=== PATIENT | male | born 1970 | race Caucasian/White ===

== ENCOUNTER 2019-04-13 08:41 | Outpatient (CLI) | payer OTHER ==
--- NOTE | 2019-04-14 08:52 | MRI Report ---
Reason: LOWER ABDOMINAL PAIN,UNSPECIFIED Procedure Date: 04/13/2019 Accession Number: [id number] / [id number] Procedure: MRI - Pelvis W/O CPT Code: FULL RESULT: EXAM: MRI PELVIS WITHOUT CONTRAST EXAM DATE: 04/13/2019 09:04 AM. CLINICAL HISTORY: Lower abdominal pain. Injury during racquetball. Clinical concern for sports hernia. COMPARISON: None. TECHNIQUE: Multiplanar, multisequence T1-weighted and fluid-sensitive sequences of the pelvis without contrast. Other: None. FINDINGS: Bones: No fractures. Severe marrow edema is demonstrated in the bilateral medial pubic bones, which could be reactive or represent stress reaction. Lower Lumbar Spine: Unremarkable. Sacroiliac Joints: No effusion or sacroiliitis. Right Hip: No acetabular retroversion. Femoral head-neck offset is within normal limits. No effusion. Left Hip: No acetabular retroversion. Femoral head-neck offset is within normal limits. No effusion. Symphysis Pubis: At the inferior half of the anterior pubic symphysis and the entire posterior half of the pubic symphysis, the central disk is from the right pubic bone and the abductor aponeurosis is pulled off the bone. Separation is as much as 3 mm (series 401, image 10). Musculature: There is edema in the proximal right abductor muscle origin on the pubic symphysis as a result of the avulsion injury. No fatty atrophy. Pelvic Cavity: The visualized bowel, bladder, and reproductive organs are unremarkable. No lymphadenopathy. No free fluid in the pelvis. Other: The visualized sciatic nerves are unremarkable. No bursitis. The subcutaneous tissues are unremarkable. IMPRESSION: 1. Severe marrow edema in the bilateral pubic bones may represent stress reaction. 2. Separation of the central disk of the pubic symphysis and the aponeurosis of the right abductor muscle origin from the right pubic bone by 3 mm. RADIA
== END 2019-04-13 08:42 | disposition home or self-care (01) ==
LOC: DI 08:41
PROVIDERS: ATTEND Family Medicine
DX: M62.051 Separation of muscle (nontraumatic), right thigh (principal); M94.8X8 Other specified disorders of cartilage, other site
CPT/HCPCS: 72195

== ENCOUNTER 2020-05-04 09:17 | Outpatient (CLI) | payer OTHER ==
[~2020-05-04 09:17] MED LIST: BUFFERED LIDOCAINE 10 ML SYRINGE ONE; GADOBUTROL 7.5 MMOL/7.5 ML VIAL ONE
[2020-05-04] MEDS ORDERED: BUFFERED LIDOCAINE 10 ML SYRINGE IU ONE (12:17)
[2020-05-04] MEDS ORDERED: GADOBUTROL 7.5 MMOL/7.5 ML VIAL IVP ONE (12:17)
[2020-05-04] MEDS ORDERED: iohexoL-240 10 ML VIAL IVP ONE (12:18)
--- NOTE | 2020-05-04 13:20 | XRAY Report ---
Reason: RT SHOULDER PAIN Procedure Date: 05/04/2020 Accession Number: [id number] / [id number] Procedure: FL - Arthrogram Needle Placement CPT Code: Final Report FULL RESULT: PROCEDURE: Arthrogram Needle Placement INDICATIONS: Right shoulder pain CONTRAST: 0.5 mL of gadolinium this and 6 mm Omnipaque 240. FLUOROSCOPY TIME: 10 seconds; 3 images TECHNIQUE: The indications, alternatives, benefits, risks, and complications of the procedure were explained to the patient. Written informed consent was obtained and placed in the chart. The shoulder was examined fluoroscopically and a site for needle placement chosen for entry into the glenohumeral joint from an anterior approach. The skin was prepped and draped in the usual fashion, and 1% lidocaine infiltrated from skin down to joint capsule. A spinal needle was inserted into the glenohumeral joint, and a small amount of iodinated contrast media injected to confirm intra-articular placement of the needle tip. This was followed by approximately 12 mL dilute solution of a gadolinium containing MR contrast agent. The needle was removed and a dressing was applied. The patient was given postprocedural instructions and sent to the MR suite for MR imaging. FINDINGS: A single fluoroscopic spot image demonstrates intra-articular location of injected iodinated contrast. IMPRESSION: Successful fluoroscopically guided administration of dilute Gadolinium solution into the shoulder joint for MR arthrogram. Reviewed by: Guilherme Reed MD on 05/04/2020 1:19 PM PDT Approved by: Guilherme Reed MD on 05/04/2020 1:19 PM PDT Station ID: [id number]
--- NOTE | 2020-05-04 14:27 | MRI Report ---
PROCEDURE: Arthrogram Shoulder RT INDICATIONS: RT SHOULDER PAIN CONTRAST: 12 mL of diluted intra-articular gadolinium contrast. TECHNIQUE: After the administration of 12 mL of dilute intra-articular Gadolinium contrast, oblique coronal T1 a nd T2 spin echo with fat saturation, oblique sagittal T1 spin echo with and without fat saturation, o blique sagittal T2 fast spin echo with fat saturation, axial T1 spin echo with fat saturation through the shoulder. COMPARISON: None. FINDINGS: Image quality: Excellent. Rotator cuff: Tendinosis and low-grade articular and bursal surface partial-thickness tear involving distal supraspinatus at its insertion on humeral head is seen extending to musculotendinous junction. Distal infraspinatus and subscapularis tendons are intact. No full-thickness rotator cuff tendon rup ture. No rotator cuff muscle atrophy on sagittal images. Bones and bursae: No bone marrow contusions or fractures. No acromioclavicular joint degeneration. The acromion demonstrates conventional anatomy, without an os acromiale. Capsule and soft tissues: There is contrast extension and contour irregularity involving superior ant erior labrum extending from 11 to 1:00 position consistent with superior labral tear. The glenohumera l ligaments appear intact. The long head of the biceps tendon demonstrates normal location and morph ology. The rotator interval appears normal, without fibrosis. The coracohumeral ligament is of norm al thickness. No intra-articular bodies. IMPRESSION: 1. Extensive superior labral tear extending from 11 to 1:00 position. 2. Tendinosis and low-grade articular and bursal surface partial-thickness tear involving distal supr aspinatus. No full-thickness rotator cuff tendon rupture. 3. No marrow edema. No fracture or dislocation. Reviewed by: Stuart Landeros MD on 05/04/2020 2:25 PM PDT Approved by: Stuart Landeros MD on 05/04/2020 2:25 PM PDT Station ID: [id number]
== END 2020-05-04 09:18 | disposition home or self-care (01) ==
LOC: DI 09:17
PROVIDERS: ATTEND Family Medicine
DX: S43.431A Superior glenoid labrum lesion of right shoulder, initial encounter (principal); M75.101 Unspecified rotator cuff tear or rupture of right shoulder, not specified as traumatic; M75.81 Other shoulder lesions, right shoulder
CPT/HCPCS: 23350; 73222; 77002; A9585

== ENCOUNTER 2020-06-20 12:26 | Outpatient (CLI) | payer OTHER ==
[~2020-06-20 12:26] MED LIST changes: -BUFFERED LIDOCAINE 10 ML SYRINGE ONE; -GADOBUTROL 7.5 MMOL/7.5 ML VIAL ONE; +ROPIVACAINE 0.5% PF 20 ML AMPULE ONE; +TRIAMCINOLONE 40 MG/ML VIAL ONE
[2020-06-20] MEDS ORDERED: LIDOCAINE 1% 10 ML MDV MC ONE (13:30)
--- NOTE | 2020-06-20 14:36 | Ultrasound Report ---
PROCEDURE: Injection Single Tendon INDICATIONS: RT SHOULDER BICIPITAL TENDINITIS TECHNIQUE: The indications, alternatives, benefits, risks, and complications of the procedure were explained to the patient. Written informed consent was obtained and placed in the chart. The patient was placed in an appropriate position on the fluoroscopy table, and a site was chosen for percutaneous access un brayden ultrasound guidance. Local anesthetic was administered using a 1% lidocaine solution. A hypoder krish or spinal needle was then used to access the site. The postion of the needle tip was confirmed b y real time ultrasound imaging, followed by administration of mixture of steroid and analgesics. The needle was then withdrawn, and a bandage applied to the puncture site. FINDINGS: Site injected: Bicipital tendon Medications injected: 4 mL of 40 mg/mL Kenalog and 0.5% Ropivacaine mixture. Patient's pain before injection: 2 of 10. Patient's pain after injection: 0 of 10. Complications: None. IMPRESSION: Successful ultrasound guided administration of steroid and anaesthetic solution around t he long head of the right bicipital tendon . Reviewed by: Arturo Walter MD on 06/20/2020 2:34 PM PDT Approved by: Arturo Walter MD on 06/20/2020 2:34 PM PDT Station ID: [id number]
[2020-06-20] MEDS ORDERED: LIDOCAINE 1% 10 ML MDV SUBQ ONE (15:18)
[2020-06-20] MEDS ORDERED: TRIAMCINOLONE 40 MG/ML VIAL IM ONE (15:19)
[2020-06-20] MEDS ORDERED: ROPIVACAINE 0.5% PF 20 ML AMPULE EP ONE (15:20)
== END 2020-06-20 12:27 | disposition home or self-care (01) ==
LOC: DI 12:26
PROVIDERS: ATTEND Orthopaedic Surgery
DX: M75.21 Bicipital tendinitis, right shoulder (principal)
CPT/HCPCS: 20550

== ENCOUNTER 2020-10-24 12:04 | Day surgery (SDC) | payer OTHER ==
[~2020-10-24 12:04] MED LIST changes: -ROPIVACAINE 0.5% PF 20 ML AMPULE ONE; -TRIAMCINOLONE 40 MG/ML VIAL ONE; +cefTRIAXone 2 GM VIAL ONE
[2020-10-24] MEDS ORDERED: PROPOFOL 200 MG/20 ML VIAL IVP ONE (12:21)
[2020-10-24] MEDS ORDERED: LIDOCAINE-MPF 2% 5 ML VIAL ONE (12:21)
[2020-10-24] MEDS ORDERED: ROPIVACAINE 0.5% PF 20 ML AMPULE ONE (12:21)
[2020-10-24] MEDS ORDERED: LACTATED RINGERS 1,000 ML IV ONE ×2 (12:30→16:38)
[2020-10-24] MEDS ORDERED: EPINEPHrine 1 MG/ML AMP ONE (13:24)
[2020-10-24] MEDS ORDERED: BUPIVACAINE 0.25% PF 30 ML VIAL ONE (13:25)
--- NOTE | 2020-10-24 13:49 | ANESTHESIA ---
Pre-Anesthesia VS, & Labs - Diagnosis right shoulder biceps tendinitis, labral tear, bursitis, rotator cuff tear - Procedure right should scope, labral repair, rotator cuff repair, subacromial decompression, open biceps tenodesis. Vital Signs: Temp Pulse Resp BP Pulse Ox 36.2 C L 74 19 137/89 H 100 10/24/20 12:10 10/24/20 12:10 10/24/20 12:10 10/24/20 12:10 10/24/20 12:10 Height: 5 ft 10 in Weight (kg): 72.57 kg Body Mass Index: 22.9 BMI Classification: Healthy weight - NPO >8 hours Home Medications and Allergies Home Medications: Ambulatory Orders Amlodipine Besylate [Norvasc] 10 mg PO 09/28/20 Cholecalciferol (Vitamin D3) [Vitamin D3] 1,250 mcg PO 09/28/20 Dextroamphetamine/Amphetamine [Adderall Xr 20 mg Capsule] 20 mg PO 09/28/20 Lisinopril [Zestril] 20 mg PO 09/28/20 Amlodipine Besylate [Norvasc] 10 mg PO 09/28/20 Cholecalciferol (Vitamin D3) [Vitamin D3] 1,250 mcg PO 09/28/20 Dextroamphetamine/Amphetamine [Adderall Xr 20 mg Capsule] 20 mg PO 09/28/20 Lisinopril [Zestril] 20 mg PO 09/28/20 Allergies/Adverse Reactions: Allergies Allergy/AdvReac Type Severity Reaction Status Date / Time No Known Drug Allergies Allergy Verified 09/28/20 10:50 Anes History & Medical History - Anesthetic History Anesthesia Complications: reports: Post-Operative Nausea/Vomiting - Medical History Cardiovascular: reports: Hypertension Pulmonary: reports: None Gastrointestinal: reports: None Urinary: reports: None Neuro: reports: None Musculoskeletal: reports: None Endocrine/Autoimmune: reports: None Blood Disorders: reports: None Skin: reports: None Smoking Status: Never smoker Psychosocial: reports: No issues indicated, Other (ADD/ADHD) History of Cancer?: No - Surgical History Orthopedic: Shoulder arthroplasty, Other (ankle surgery 2016) Exam General: Alert, Oriented x3, Cooperative, No acute distress Dental: WNL Mouth Openin Fingerbreadth Neck Mobility: Normal Mallampati classification: II Thyromental Distance: 4-6 cm Mental/Cognitive Status: Alert/Oriented X3, Normal for patient Plan Anesthesia Type: General, Interscalene Block (right) Regional Block: Per Surgeon's request for Post Op pain control Consent for Procedure(s) Verified and Reviewed: Yes Code Status: Attempt Resuscitation ASA classification: 2-Mild systemic disease Is this case an emergency?: No
[2020-10-24] MEDS ORDERED: SCOPOLAMINE PATCH TOP SCH (14:00)
[2020-10-24] MEDS ORDERED: SCOPOLAMINE PATCH TOP ONE (14:02)
[2020-10-24] MEDS ORDERED: MIDAZOLAM 2 MG/2 ML VIAL ONE (14:12)
[2020-10-24] MEDS ORDERED: fentaNYL 100 MCG/2 ML VIAL ONE (14:12)
[2020-10-24] MEDS ORDERED: EPINEPHrine 1 MG/ML AMP IR ONE ×2 (14:20)
[2020-10-24] MEDS ORDERED: NALOXONE 0.4 MG/ML VIAL IVP PRN (16:11)
[2020-10-24] MEDS ORDERED: ATROPINE ABBOJECT 1 MG/10 ML SYRINGE IVP PRN (16:11)
[2020-10-24] MEDS ORDERED: HYDROmorphone 0.5 MG/0.5 ML SYRINGE IVP PRN (16:11)
[2020-10-24] MEDS ORDERED: ONDANSETRON 4 MG/2 ML VIAL IVP PRN ×2 (16:11→16:32)
[2020-10-24] MEDS ORDERED: MORPHINE 2 MG/ML CARPUJECT IVP PRN (16:11)
[2020-10-24] MEDS ORDERED: fentaNYL 100 MCG/2 ML VIAL IVP PRN (16:11)
[2020-10-24] MEDS ORDERED: PROMETHAZINE INJ 6.25 MG in SODIUM CHLORIDE 0.9% 50 ML IV PRN (16:12)
[2020-10-24] MEDS ORDERED: oxyCODONE 5 MG TABLET PO PRN (16:32)
--- NOTE | 2020-10-24 16:44 | ANESTHESIA POST OP EVALUATION ---
Anesthesia Post Eval - Post Anesthesia Eval Vitals: Last Vital Signs Temp 36.2 C L 10/24/20 16:35 Pulse 77 10/24/20 16:35 Resp 21 10/24/20 16:35 BP 143/75 H 10/24/20 16:35 Pulse Ox 100 10/24/20 16:35 CV Function Including HR & BP: positive: Stable Pain Control: positive: Satisfactory Nausea & Vomiting: positive: Negative Mental Status: positive: Baseline Respiratory Status: Airway Patent Hydration Status: Satisfactory Anesthesia Complications: positive: None
--- NOTE | 2020-10-24 16:48 | OPERATIVE REPORT ---
Operative Report - Other Other Information/Narrative: Date of Surgery: 24 October 2020 Pre-Op Diagnosis: Right shoulder SLAP tear. Right shoulder labral tear Procedure: Right shoulder arthroscopic labral debridement. Mini open biceps tenodesis Postop Diagnosis: Same as above Primary Surgeon: Raj Kendall Secondary Surgeon: None Complications: None EBL: 25 cc IMPLANTS: Arthrex fiber tack x1 POSTOPERATIVE PLAN: 0-2 weeks-Sling at all times. Pendulum exercises 5 times per day. 2-6 weeks-Passive and active range of motion without limitations. No active flexion of the biceps 6-12 weeks-Gradually increase strengthening focusing on rotator cuff and scapular stabilizers per protocol. 16 weeks and beyond-Introduce dynamic activities. EXAMINATION UNDER ANESTHESIA: ROM: Full Anterior load and shift: Stable Posterior load and shift: Grade 1, equal to the contralateral side Inferior sulcus: Stable ARTHROSCOPIC FINDINGS: Rotator interval: Normal Biceps tendon & SLAP: Type II SLAP tear, biceps tendon was thickened Subscapularis: Normal Rotator Cuff: Minimal fraying of the leading edge of supraspinatus HAGL: Normal Labrum: Circumferential tearing of the superficial labrum was seen. The SLAP region was very unstable and superior to 9:00 on the posterior was also unstable and connected to the SLAP region. The capsular tissues just deep to the labrum were intact from 9:00 around to 3:00. Instability was not his complaint and the tear seemed to be chronic so the decision was made to not perform a labral tear as this would likely lead to stiffness may not improve his symptoms Glenoid Cartilage: Grade 1 softening Humeral Head Cartilage: Normal INDICATION FOR SURGERY: 50-year-old male who injured her shoulder while playing racquetball many months ago. His pain is anterior and present on [place] testing. MRI also showed a labral tear however there was no complaint of instability and there was no instability on examination. There were no rotator cuff symptoms. Nonoperative management failed to resolve symptoms. The risks, benefits, and alternatives were discussed. Risks included pain, bleeding, infection, damage to nearby structures, lack of symptom relief, implant complications, stiffness, need for further surgeries, DVT, PE, stroke, and even . He signed a written consent form. PROCEDURE IN DETAIL: The patient was met in the preoperative holding on the day of the procedure. Operative extremity was signed. Consent was verified. They desired to proceed. Regional anesthesia was obtained in the preoperative area. They were brought to the operating room and surrendered to anesthesia. Once general anesthesia was obtained they were placed in the lateral decubitus position with the operative side up. An axillary roll was placed and all bony prominences were well-padded. A surgical timeout was held to confirm the patient procedure, identity, procedure, laterality, allergies, images, and antibiotics. All were in agreement we proceeded. A standard diagnostic arthroscopy was performed utilizing posterior and anterosuperior portals. The anterosuperior portal was created under direct visualization and localized with a spinal needle. The 7 mm cannula was placed anteriorly. The findings of the diagnostic arthroscopy can be found above. I carefully assessed the labral tear with a probe and had the findings as above. I decided to not perform a labral repair as I did not think this would improve his symptoms. I used the shaver and biter to debride the superficial portions of the labrum that appeared unstable. I used a straight biter to release the biceps from its superior attachment point. A shaver was used to debride the stump of the biceps. MINI OPEN BICEPS TENODESIS: A 5 cm incision was made near the axillary fold centered over the pectoralis major tendon. Electrocautery was used to obtain hemostasis. The fascia was opened with dissection scissors. Blunt digital dissection was used to identify the intertubercular groove just under the pectoralis major tendon. The long head of the biceps tendon was visualized within this interval. The short head of the biceps was retracted with my finger and the right angle was used to deliver the tendon of the long head of the biceps out of the wound. A trotter elevator was then used to debride all synovial tissue from the intertubercular groove. A fibertack was placed high within the groove. Both limbs of the fibertack were pulled on and it was well fixed. I then whipstitched the biceps tendon starting 2 cm proximal to the musculotendinous junction down to the musculotendinous junction and back up to the same 2 cm location with a single limb of the suture tack. The other suture was placed once through the tendon at the 2 cm location. I then cut all excess tendon off. The suture limb that was passed the single time was then pulled on and this reduced the tendon nicely into the groove. The elbow was fully straightened and there was no excess tension on the repair site. I then tied 7 reverse half hitches alternating to secure the tendon in its place. The wound was then irrigated copiously. The portal sites were then closed with 3-0 Monocryl buried. Any open incisions were closed with 2-0 Vicryl in the dermis and a running 3-0 Monocryl in the skin. Mastisol and Steri-Strips were applied. A sterile dressing and a sling was applied. A sling was placed. The patient was awakened and transferred to the recovery room.
[2020-10-24] MEDS ORDERED: LACTATED RINGERS 1,000 ML IV SCH (17:00)
[2020-10-24 17:26] VITALS: BP 119/76
== END 2020-10-24 12:05 | disposition home or self-care (01) ==
LOC: SDS 12:04
PROVIDERS: ATTEND Orthopaedic Surgery
DX: S43.431A Superior glenoid labrum lesion of right shoulder, initial encounter (principal); M75.21 Bicipital tendinitis, right shoulder; X58.XXXA Exposure to other specified factors, initial encounter; M94.211 Chondromalacia, right shoulder; X50.3XXA Overexertion from repetitive movements, initial encounter; Y93.73 Activity, racquet and hand sports; Y99.8 Other external cause status; I10 Essential (primary) hypertension; F90.9 Attention-deficit hyperactivity disorder, unspecified type

== ENCOUNTER 2022-01-16 07:16 | Outpatient (CLI) | payer OTHER ==
--- NOTE | 2022-01-16 10:02 | MRI Report ---
PROCEDURE: Knee RT W/O INDICATIONS: PAIN IN RT KNEE TECHNIQUE: Noncontrast sagittal PD fast spin echo and T2 fast spin echo with fat saturation, sagittal 3-D gradie nt sequence with fat saturation; coronal T1 spin echo and PD fast spin echo with fat saturation, and axial PD fast spin echo with fat saturation through the knee. COMPARISON: None. FINDINGS: Image quality: Excellent. Menisci: There is mild T2 signal elevation at the posterior meniscocapsular junction of the posterior horn medial meniscus. Lateral meniscus is intact. Cruciate ligaments: The anterior and posterior cruciate ligaments appear intact. Medial structures: The medial collateral ligament appears intact. Visualized portions of the pes ans erinus tendons appear normal. No abnormal bursal fluid. Lateral structures: The lateral collateral ligament demonstrates mild T2 signal elevation at the fem oral origin. The long and short heads of the biceps femoris tendon appear intact. The popliteus tend on appears normal. Iliotibial band appears normal. Anterior structures: The quadriceps and patellar tendons appear intact. There is mild T2 signal elev ation within the patellar tendon at the patellar insertion site. Patellar alignment is normal. No fe moral trochlear dysplasia or ventral trochlear prominence. Mild edema in the superolateral aspect of the infrapatellar fat pad. Bones and cartilage: No bone marrow contusions or fractures. Articular cartilage fibrillation overli es the lateral patellar facet inferiorly. Joint space: There is physiologic knee joint fluid. Trace Escalera's cyst. Normal appearing synovial p licae are incidentally noted. IMPRESSION: 1. Meniscal capsular junction injury involving the medial meniscus. 2. Patellar tendinitis. 3. Findings consistent with mild/early lateral patellofemoral friction syndrome in the appropriate cl inical setting. Reviewed by: Lauren Mitchell MD on 01/16/2022 10:00 AM PDT Approved by: Lauren Mitchell MD on 01/16/2022 10:00 AM PDT Station ID: [id number]
== END 2022-01-16 07:17 | disposition home or self-care (01) ==
LOC: DI 07:16
PROVIDERS: ATTEND Physician Assistant
DX: M76.51 Patellar tendinitis, right knee (principal); S89.91XA Unspecified injury of right lower leg, initial encounter

== ENCOUNTER 2022-07-15 07:05 | Outpatient (CLI) | payer OTHER ==
--- NOTE | 2022-07-15 10:57 | MRI Report ---
PROCEDURE: MRI lumbar spine without contrast INDICATIONS: LOW BACK PAIN, CERVICALGIA TECHNIQUE: Noncontrast sagittal T1 spin echo and T2 fast echo, sagittal STIR, axial T1 and T2 fast spin echo thr ough the lumbar spine. In cases with scoliosis, additional coronal T2 fast spin echo may be performe d. COMPARISON: None. FINDINGS: Image quality: Excellent. Alignment and Curvature: There is normal bony alignment. Bone Marrow: Marrow is of normal overall signal. No acute vertebral body compression fractures. Spinal Cord: Conus medullaris terminates at the L1 level. Visualized cord demonstrates normal signa l and size. Paraspinous Soft Tissues: No paravertebral masses. T12-L1: Normal in appearance. L1-L2: Normal in appearance. L2-L3: Disc space narrowing and circumferential disc bulge without central or foraminal stenosis. L3-L4: Disc space narrowing and circumferential disc bulge results in mild central stenosis. No for aminal stenosis. L4-L5: Disc height is preserved. Mild circumferential disc bulge present without central or foramin al stenosis L5-S1: Normal in appearance. IMPRESSION: Mild degenerative changes without central or foraminal stenosis Reviewed by: Agustín Soriano MD on 07/15/2022 9:56 AM RENETTA Approved by: Agustín Soriano MD on 07/15/2022 9:56 AM AKAPRIL Station ID: [id number]
--- NOTE | 2022-07-15 11:09 | MRI Report ---
PROCEDURE: MRI cervical spine without contrast INDICATIONS: LOW BACK PAIN, CERVICALGIA TECHNIQUE: Noncontrast sagittal T1 spin echo and T2 fast spin echo, sagittal STIR, foraminal oblique sagittal T2 fast spin echo, and axial gradient echo or T2 fast spin echo through the cervical spine. COMPARISON: None. FINDINGS: Image quality: Excellent. Alignment and Curvature: There is normal bony alignment. Bone Marrow: Marrow demonstrates normal overall signal. Spinal Cord: Visualized spinal cord has normal size and signal. No cerebellar tonsillar herniation. Paraspinous Soft Tissues: No paravertebral masses. Prevertebral soft tissues are normal in thicknes s. C2-C3: Normal in appearance. C3-C4: Disc height is maintained. Small posterior disc osteophyte complex results in mild central s tenosis. Hypertrophic uncovertebral joints noted with mild right foraminal stenosis. No left foramina l stenosis. C4-C5: Disc space narrowing with posterior disc osteophyte complex results in mild central and no fo raminal stenosis. C5-C6: Mild disc space narrowing with posterior disc osteophyte complex results in mild central sten osis. No left and moderate right foraminal stenosis. C6-C7: Disc height is maintained. Small posterior disc osteophyte complex with trace foraminal steno sis. Moderate left and no right foraminal stenosis C7-T1: Normal in appearance. IMPRESSION: Multilevel degenerative disc disease and arthropathy results in varying degrees of central and forami nal stenosis including moderate central stenosis at C5-6 and C6-7 Reviewed by: Agustín Soriano MD on 07/15/2022 10:08 AM RENETTA Approved by: Agustín Soriano MD on 07/15/2022 10:08 AM RENETTA Station ID: [id number]
== END 2022-07-15 07:06 | disposition home or self-care (01) ==
LOC: DI 07:05
PROVIDERS: ATTEND Physician Assistant
DX: M51.36 Other intervertebral disc degeneration, lumbar region (principal); M50.31 Other cervical disc degeneration, high cervical region; M47.812 Spondylosis without myelopathy or radiculopathy, cervical region; M48.02 Spinal stenosis, cervical region

== ENCOUNTER 2023-02-10 11:03 | Outpatient (CLI) | payer OTHER | END 2023-02-10 11:04 | disposition home or self-care (01) | LOC: RT 11:03 | PROVIDERS: ATTEND Physician Assistant | DX: R06.00 Dyspnea, unspecified (principal) | CPT/HCPCS: 94010; 94727; 94729 ==

== ENCOUNTER 2024-04-12 20:17 | Emergency (ER) | payer OTHER ==
--- NOTE | 2024-04-12 20:44 | ED Physician Documentation ---
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 just prior to arrival.) PD PAST MEDICAL HISTORY - Past Medical History Past Medical History: No Cardiovascular: Hypertension Respiratory: None Neuro: None Endocrine/Autoimmune: None GI: None : None HEENT: None Psych: ADD/ADHD Musculoskeletal: None Derm: None - Past Surgical History Past Surgical History: Yes Ortho: Shoulder arthroplasty, Other - Present Medications Home Medications: Ambulatory Orders Medication Instructions Recorded Confirmed Amlodipine Besylate [Norvasc] 10 mg PO 09/28/20 Cholecalciferol (Vitamin D3) 1,250 mcg PO 09/28/20 [Vitamin D3] Dextroamphetamine/Amphetamine 20 mg PO 09/28/20 [Adderall Xr 20 mg Capsule] Lisinopril [Zestril] 20 mg PO 09/28/20 Bacitracin Zinc Oint 1 applic TOP BID #1 each 04/12/24 HYDROcod/ACETAM 5/325 [Vilas 5/325] 1 - 2 tab PO Q6H PRN #7 tablet 04/12/24 cephALEXin [Keflex] 500 mg PO Q6H #10 cap 04/12/24 - Allergies Allergies/Adverse Reactions: Allergies Allergy/AdvReac Type Severity Reaction Status Date / Time No Known Drug Allergies Allergy Verified 04/12/24 20:24 - Social History Does the pt smoke?: No Smoking Status: Never smoker - Immunizations Immunizations are current?: Yes PD ED PE NORMAL - Vitals Vital signs reviewed: Yes - General General: Alert and oriented X 3, No acute distress - Extremities Extremities: Other (There is a tissue defect involving the ulnar side of the left middle finger nail and proceeding anteriorly measuring a total of about 1.5 cm with some gaping. It is floppy consistent with a tuft fracture. There is a small subungual hematoma.) - Neuro Neuro: Alert and oriented X 3, Normal speech Results - Vitals Vitals: Vital Signs - 24 hr 04/12/24 04/12/24 20:21 21:14 Temperature 36.5 C 36 C L Heart Rate 76 74 Respiratory 18 14 Rate Blood Pressure 162/100 H 124/74 O2 Saturation 100 99 Oxygen O2 Source Room air - Rads (name of study) Finger XR- missing bone from tuft. Relevant Findings:: Final report received, EMP independent interpretation of test Procedures - Laceration (location) Left middle finger Length in cm: 1.5 Wound type: Irregular, Into subcut fat Neurovascular status: Motor intact, Other (Insensate on the ulnar side of the distal tip of the finger.) Tendon involvement: Tendon intact Anesthesia: Lidocaine 1% (Digital block with excellent anesthesia) Wound preparation: Chlorhexadine, Irrigated copiously NS Skin layer closure: Nylon, Interrupted, Size #-0 - enter number (4-0), Sutures - enter # (5) Other: No complications Departure - Departure Disposition: Home, Self Care Clinical Impression: Open fracture of finger of left hand Condition: Good Record reviewed to determine appropriate education?: Yes Instructions: ED Fx Finger Open Follow-Up: Orthopedic Care [Provider Group] - Within 1 week Prescriptions: Bacitracin Zinc Oint 1 applic TOP BID #1 each cephALEXin [Keflex] 500 mg PO Q6H #10 cap HYDROcod/ACETAM 5/325 [Vilas 5/325] 1 - 2 tab PO Q6H PRN #7 tablet PRN Reason: Pain Comments: I sent your prescriptions electronically [place] the [facility] [place] Keep the current dressing on until Friday morning, at which after which time you can wash it very briefly with soap and water and then pat it dry. Apply the antibiotic ointment which is also prescribed and a nonstick dressing as well as the splint you were given. You should follow-up in orthopedics clinic in about a week, call tomorrow for an appointment. Keep it elevated. Return for new or worsening symptoms. You do have sutures in there, the orthopedics clinic can take those out and probably 2 weeks. I am prescribing a short course of narcotic pain medication for you. These are potentially dangerous and addictive medications that should be used carefully. These medications may constipate you. Take an [id number] stool softener (docusate) twice daily with plenty of water while taking these medications. If you go 24 hours without a bowel movement, take [id number] miralax, per package instructions. Do not drink or drive while taking these medications. If you received narcotic or sedating medications while in the emergency department, do not drive for 24 hours. Store this medication in a safe, secure place and out of reach of children. It is a violation of federal law to give or sell this medication to another person or to use in a manner other than prescribed. The ED will not refill narcotic prescriptions, including prescriptions lost or stolen. To dispose of unwanted medications: 1. [facility] provides a drop box for medication in pill form only (no liquids) 8:00 am to 4:30 p.m. Friday-Friday in the lobby of the [facility], [address] [place] [address]. Empty pills into ziplock bag before disposal. Call [phone] for information. 2.[employer] is a free service available to all [facility] residents. Go to [email or web address] Note that many narcotic pain relievers also contain Tylenol/acetaminophen. Please ensure that your total dose of acetaminophen from all sources does not ex ceed 3 g (3000 mg) per day. Forms: PCP List Discharge Date/Time: 04/12/24 21:15
[2024-04-12] MEDS: HYDROcod/ACET 5/325 Prepack 4 PO STA (21:09)
[2024-04-12] MEDS: CEPHALEXIN 250 MG Prepack 8 CAP BOTTLE PO STA (21:12)
[2024-04-12 21:22] VITALS: BP 124/74; O2SAT 99
--- NOTE | 2024-04-12 22:59 | XRAY Report ---
PROCEDURE: Finger(s) LT INDICATIONS: finger inj TECHNIQUE: AP hand, 2 views of the left middle finger(s) acquired. COMPARISON: None. FINDINGS: Bones: There is a minimally displaced, comminuted fracture involving the distal phalanx of the left third finger with adjacent soft tissue injury. Other visualized osseous structures appear intact. No intra-articular extension. No suspicious bony lesions. Soft tissues: No suspicious soft tissue calcifications or masses. Soft tissue injury over the ulna r side of the distal left middle finger. No radiopaque soft tissue foreign body visualized. IMPRESSION: Distal left middle finger soft tissue injury with underlying fracture of the third finger distal phal anx. No radiopaque soft tissue foreign body. Reviewed by: Brando Miller MD on 04/12/2024 10:58 PM PDT Approved by: Brando Miller MD on 04/12/2024 10:58 PM PDT Station ID: [id number]
== END 2024-04-12 21:15 | disposition home or self-care (01) ==
LOC: ED 20:17
DX: S62.633B Displaced fracture of distal phalanx of left middle finger, initial encounter for open fracture (principal); W29.8XXA Contact with other powered hand tools and household machinery, initial encounter
CPT/HCPCS: 12001; 99283; 99284

== ENCOUNTER 2024-04-21 16:33 | Outpatient (CLI) | payer OTHER ==
--- NOTE | 2024-04-22 12:46 | XRAY Report ---
PROCEDURE: Finger(s) LT INDICATIONS: PAIN IN LEFT FINGER TECHNIQUE: AP hand, 2 views of the third finger(s) acquired. COMPARISON: X-ray finger 04/12/2024 FINDINGS: Bones: Relatively unchanged appearance of comminuted fracture within the midportion of the third dis amie phalanx. Alignment is stable. Soft tissues: No suspicious soft tissue calcifications or masses. IMPRESSION: Stable alignment of comminuted distal third phalanx fracture. No definitive bridging osteophytes are identified. Reviewed by: Gabriella Gay MD on 04/22/2024 12:44 PM PDT Approved by: Gabriella Gay MD on 04/22/2024 12:44 PM PDT Station ID: [id number]
== END 2024-04-21 16:34 | disposition home or self-care (01) ==
LOC: DI 16:33
PROVIDERS: ATTEND Orthopaedic Surgery
DX: S62.633A Displaced fracture of distal phalanx of left middle finger, initial encounter for closed fracture (principal)